=== PATIENT | female | born 1935 ===

== ENCOUNTER 2020-07-16 10:00 | Inpatient (IN) | payer OTHER ==
[~2020-07-16] VITALS: Ht 165.1 cm; Wt 79.4 kg
[2020-07-16] MEDS ORDERED: BENICAR40 MG PO (11:29)
[2020-07-16] MEDS ORDERED: METFORMIN HCL750 MG PO (11:29)
[2020-07-16] MEDS ORDERED: GLIMEPIRIDE2 MG (11:29)
[2020-07-16] MEDS ORDERED: CLONAZEPAM0.5 MG PO (11:30)
[2020-07-16] MEDS ORDERED: MAXIMUM D3325 MCG PO (11:30)
[2020-07-16] MEDS ORDERED: SIMVASTATIN10 MG PO (11:30)
[2020-07-25] MEDS ORDERED: OXYC1TAB9 PO (07:53)
[2020-07-25] MEDS ORDERED: BACTRIM 400-801 EACH PO (07:53)
[2020-07-25] MEDS ORDERED: ELIQUIS2.5 MG PO (07:53)
[2020-07-25] MEDS ORDERED: INTEGRA PLUS C1 EACH PO (07:53)
== END 2020-07-25 15:26 | DRG 470 ==
LOC: O/R 07-23 07:30 → SURH 07-23 07:30
PROVIDERS: ADMIT Orthopaedic Surgery Sports Medicine; ATTEND Orthopaedic Surgery Sports Medicine
PROC: 0SRD0J9 Replacement of Left Knee Joint with Synthetic Substitute, Cemented, Open Approach (ICD-10-PCS; principal; 2020-07-23 10:45)
DX: M17.12 Unilateral primary osteoarthritis, left knee (principal)